=== PATIENT | male | born 2000 | race Caucasian/White ===

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

== ENCOUNTER 2024-10-14 21:52 | Emergency (ER) | payer BC, OTHER ==
--- OUTSIDE RECORDS SUMMARY | 2024-10-14 21:55 | XMS REPORT | Continuity of Care Document ---
Author Name Unknown Address [address] [place] [address] [facility] thconnect Address [address] [place] [address] Care Team Providers Care [employer] Name Role Phone Sondra MORALES, Daniel Abdalla Primary Care Physician ALEXANDRA MARKS Attending Clinician Unavailable Saud Delgado Attending Clinician + [phone] Nathaniel Yeh MD Attending Clinician + [phone] Alex Sanchez MD Attending Clinician + [phone] CECI TRIPATHI Attending Clinician Subha Quiñones Attending Clinician + Charu Hilliard MD Attending Clinician +[phone] SARA GABRIEL Attending Clinician Unavailable SALO MEYERS Admitting Clinician SARA Jamison Admitting Clinician Unavailable Payers Payer Name Policy Type Policy Number Effective Date Expirati on Date Source [facility] EXCHANGE [id number] 2023 00:00:00 [facility] Exchange [id number] 2023 00:00:00 Problems Condition Name Condition Details Condition Category Status Onset Date Resolution Date Last Treatment Date Treating Clinician Comments Source Multiple fractures of pelvis with stable disruption of pelvic ring, initial encounter for closed fracture Multiple fractures of pelvis with stable disruption of pelvic ring, initial encounter for closed fracture Disease Active 2023-10 00:00: 00 [facility] Displaced fracture of anterior wall of right acetabulum , initial encounter for closed fracture Displaced fracture of anterior wall of right acetabulum , initial encounter for closed fracture Disease Active 2023-10 00:00: 00 [facility] Inguinal hernia Inguinal hernia Disease Active 12-31 00:00: 00 Overview: ICD10 Diagnosis Term Systems Mgr Utility [facility] Allergies, Adverse Reactions, Alerts Allergy Name Allergy Type Status Severity Reaction(s) Onset Date Inactive Date Treating Clinician Comments Source Ceftriax one Propensi ty to adverse reaction s Active 2023-10 00:00: 00 [facility] Clarithr omycin Drug Intolera nce Active Itching 10-27 00:00: 00 [facility] Roceptxn Im Convenie nce Drug Intolera nce Active Anaphylaxis 10-27 00:00: 00 [facility] CLARITHR OMYCIN DRUG INGREDI Active High ITCHING 10-27 00:00: 00 [facility] Active High Anaphylaxis 10-27 00:00: 00 [facility] Social History Social Habit Start Date Stop Date Quantity Comments Source Sexual orientation [facility] History of tobacco use Cigarette Smoker [facility] Tobacco use and exposure 2024-08-22 00:00:00 2024-08-22 00:00:00 User of smokeless tobacco [facility] Alcoholic beverage intake 2024-08-22 00:00:00 2024-08-22 00:00:00 Current drinker of alcohol (finding) [facility] History of Social function 2024-08-22 00:00:00 2024-08-22 00:00:00 [facility] Sex 2024-07-19 22:36:08 2024-07-19 22:36:08 Male (finding) [facility] Sex assigned at 2000 00:00:00 2000 00:00:00 M [facility] Smoking Status Start Date Stop Date Source Smokes tobacco daily 2024-08-22 00:00:00 [facility] Tobacco smoking consumption unknown [facility] Never smoker [facility] Medications Ordered Medication Name Filled Medication Name Start Date Stop Date Current Medication? Ordering Clinician Indication Dosage Frequency Signature (SIG) Comments Components Source traMADol (Ultram) 50 MG tablet 2023-10 00:00: 00 Yes 50mg 50 mg. [facility] aspirin 325 MG tablet 2023-10 00:00: 00 08-03 04:59 :00 Yes 325mg QD Take 325 mg by mouth 1 (one) time each day. [facility] Methocarbam ol 1000 MG tablet 2023-10 00:00: 00 Yes 500mg Q.[id number] 3D Take 500 mg by mouth in the morning and 500 mg at noon and 500 mg in the evening. [facility] acetaminoph en (Tylenol) 500 MG tablet 2023-10 00:00: 00 09-01 05:59 :00 Yes 1000mg Q6H Take 1,000 mg by mouth every 6 (six) hours. [facility] chlorhexidi ne (Peridex) 0.12 % solution 2023-10 00:00: 00 09-01 05:59 :00 Yes 15mL Q.5D Use 15 mL in the mouth or throat in the morning and 15 mL in the evening. [facility] aritificial tears, PF, (Bion Tears) 0.1-0.3 % ophthalmic solution 2023-10 00:00: 00 09-01 05:59 :00 Yes 1[drp] Q.[id number] 3D 1 drop 3 (three) times a day if needed. [facility] gabapentin (Neurontin) 300 MG capsule 2023-10 00:00: 00 09-01 05:59 :00 Yes 300mg Q.[id number] 3D Take 300 mg by mouth in the morning and 300 mg at noon and 300 mg in the evening. [facility] amLODIPine 10 mg tablet 12-03 00:00: 00 Yes [id number] 10mg Take 1 tablet by mouth daily. [facility] dextroamphe tamine-amph etamine 10 mg tablet 11-08 00:00: 00 Yes TK 1/2 T PO BID [facility] amLODIPine 5 mg tablet 10-22 00:00: 00 12-03 00:00 :00 No [id number] 5mg Take 1 tablet by mouth daily. [facility] Cetirizine (ZYRTEC) 10 mg Cap 07-09 13:08: 20 Yes Take by mouth. [facility] Vital Signs Vital Name Observation Time Observation Value Comments S ource Systolic blood pressure 2024-08-22 14:35:00 133 mm[Hg] [facility] Diastolic blood pressure 2024-08-22 14:35:00 88 mm[Hg] [facility] Heart rate 2024-08-22 14:35:00 84 /min [facility] Body weight 2024-08-22 14:35:00 45.949 [facility] BMI 2024-08-22 14:35:00 14.54 kg/m2 [facility] Oxygen saturation in Arterial blood by Pulse oximetry 2024-08-22 14:35:00 98 /min [facility] Body height 2024-08-13 15:08:00 177.8 cm [facility] Body weight 2024-08-13 15:08:00 69.854 kg [facility] BMI 2024-08-13 15:08:00 22.10 kg/m2 [facility] Systolic blood pressure 2019-12-03 20:00:00 164 mm[Hg] [facility] Diastolic blood pressure 2019-12-03 20:00:00 83 mm[Hg] [facility] Heart rate 2019-12-03 20:00:00 76 /min [facility] Body temperature 2019-12-03 20:00:00 36.89 Shakira [facility] Respiratory rate 2019-12-03 20:00:00 20 /min [facility] Body height 2019-12-03 20:00:00 161 cm [facility] Body weight 2019-12-03 20:00:00 52.2 kg [facility] BMI 2019-12-03 20:00:00 20.14 kg/m2 [facility] Procedures Procedure Date / Time Performed Performing Clinicia n Source POCT URINALYSIS AUTO 2019-12-03 00:00:00 Mg Storm [facility] Encounters Start Date/Time End Date/Time Encounter Type Admission Type Attending [facility] Facility Care Department Encounter ID Source 2024-11-06 09:00:00 2024-11-06 09:00:00 Outpatient ALEXANDRA MARKS [facility] [id number] [facility] 2024-10-12 15:00:00 2024-10-12 15:31:36 Procedure Visit HollisSaud hendricks [facility] [address] [id number] [facility] 2024-10-11 13:09:42 2024-10-11 13:09:48 Outpatient [facility] [id number] [facility] 2024-09-06 11:50:00 2024-09-06 11:50:00 Outpatient [facility] [id number] [facility] 2024-08-22 08:20:00 2024-08-22 10:46:50 Office Visit Nathaniel Yeh [facility] 2 [id number] [facility] 2024-08-16 14:00:00 2024-08-16 14:35:40 Office Visit Alex Sanchez [facility] [id number] [id number] [facility] 2024-08-16 14:00:00 2024-08-16 14:35:40 Outpatient [facility] [id number] [facility] 2024-08-13 10:00:00 2024-08-13 11:13:29 Office Visit Alexandra Marks [facility] [address] [id number] [facility] 2024-07-20 07:23:00 2024-08-01 20:06:00 Inpatient Emergency CECI TRIPATHI [facility] Trauma [id number] [facility] 2019-12-20 00:00:00 2019-12-20 00:00:00 [facility] [id number] [facility] 2019-12-03 13:51:10 2019-12-03 14:52:03 Office Visit Eneida [facility] Office Building [id number] [facility] 2019-11-21 00:00:00 2019-11-21 00:00:00 Letter (Out) Charu Hilliard Samantha [facility] [id number] [facility] 2019-11-21 00:00:00 2019-11-21 00:00:00 Letter (Out) Tito Moniquencgonzalo [facility] [id number] [facility] 2019-09-24 08:19:57 2019-09-24 23:59:00 Outpatient SARA HANNA [facility] [id number] [facility] Results Test Description Test Time Test Comments Results Result Co mments Source [facility] [id number] 21:10:00 * Test Item Value Reference Range Interpretation Comme nts POCT U SP GRAV (test code = 3255) 1.010 mg/dl 1.005-1.025 POCT PH U (test code = 3254) 7.0 mg/dl 5-8 POCT U LEUK EST (test code = 3263) - Negative - Negative POCT U NIT (test code = 3262) - Negative - Negati ve POCT U PROT (test code = 3259) - Negative - Negative POCT U GLU (test code = 3256) - Negative - Negati ve POCT U KETONE (test code = 3258) - Negative - Negative POCT U UROBILI (test code = 3260) - 0.2-1 POCT U BILI (test code = 3261) - Negative - Negative POCT U BLD (test code = 3257) trace Negative - Negati ve A POCT U COLOR (test code = 3266) yellow POCT U APPEAR (test code = 3267) clear Lab Interpretation (test cod e = 70122-5) Abnormal [facility]
--- NOTE | 2024-10-14 23:34 | RAD REPORT ---
CT CHEST WITHOUT IV CONTRAST CLINICAL INDICATION: Pain. COMPARISON: No prior images available for comparison at time of interpretation. Radiology reports of CT chest from 07/22/2024 is available. TECHNIQUE: CT exam of the chest was obtained without contrast. Multiplanar reformats were provided. D ose-optimization techniques such as automated exposure control, iterative reconstruction, and mA and/or kV adjustment for patient size was utilized for this examination. FINDINGS: LOWER NECK: Unremarkable. AIRWAYS: Trachea and mainstem bronchi are patent. LUNGS/PLEURA: There is a 4.9 x 4.0 x 8.3 cm (AP x TV x CC) multilobulated structure in left lower lob e with Hounsfield unit of approximately 26. There is associated mild pleural thickening. Several linear streaky opacities adjacent to the structure could represent subsegmental atelectasis or scarri ng. Remainder of the lungs are clear. No pleural effusions or pneumothorax. VASCULATURE: Unremarkable, noting limited evaluation on noncontrast exam. MEDIASTINUM/NODES: No pathologic adenopathy. HEART: Normal heart size. No pericardial effusion. CHEST WALL: Unremarkable. UPPER ABDOMEN: Embolization coil at left splenic hilum and postsurgical changes in left upper abdomen . BONES: Fractures with callus formation left 6th-11th posterior rib, left T6-T10 transverse processes and manubrium of sternum. With callus formation. No acute fracture. No vertebral compression deformity. No joint dislocation or subluxation. IMPRESSION: 1. Multilobulated 8.3 cm structure in left lower lobe without significant surrounding inflammation. Findings likely represent evolving posttreatment hematoma and/or granuloma. 2. Healing fractures of left 6th-11th posterior ribs, left T6-T10 transverse processes and manubriu m of sternum with callus formation. Electronically signed by: Melyssa Contreras MD 10/14/2024 11:30 PM [facility] Due to temporary technical issues with the PACS/SheZoom reporting system, reports are being michelle d by the in-house radiologist without review as a courtesy to ensure prompt reporting the interpreting radiologist is fully responsible for the content of the report. Transcribed Date/Time: 10/14/2024 11:34 PM
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
[2024-10-15 04:46] VITALS: TEMP 98.5
[2024-10-15 04:50] VITALS: BP 131/81; O2SAT 98
== END 2024-10-15 00:13 | disposition home or self-care (01) ==
LOC: ER 21:52
DX: R07.1 Chest pain on breathing (principal); F17.290 Nicotine dependence, other tobacco product, uncomplicated; S00.12XA Contusion of left eyelid and periocular area, initial encounter; Y04.2XXA Assault by strike against or bumped into by another person, initial encounter; Y93.9 Activity, unspecified; Y92.9 Unspecified place or not applicable
CPT/HCPCS: 70450; 70486; 71250; 76377; 99283